=== PATIENT | male | born 1945 | race Caucasian/White ===

== ENCOUNTER 2020-04-03 08:53 | Day surgery (SDC) | payer MEDICARE, OTHER, SELFPAY ==
[~2020-04-03] VITALS: Ht 180.3 cm; Wt 80.0 kg
[~2020-04-03 08:53] MED LIST: AMLO10 PO; AMLO5 PO; ASPI325 PO; ASPI81CH PO; CHLO25 PO; CLOP75 PO; HYDR1TAB94 PO; METO25ER PO; METO50ER PO; Norco 5-325 Ta1 EACH PO; PANT20 PO; SULFA DRUG; THERAPEUTIC-M1 EAC3 PO; Ventolin5 MG/1 ML INH; WARFARIN
== END 2020-04-03 11:40 | disposition home or self-care (01) ==
LOC: ORSCSDS 08:53
PROVIDERS: Student in an Organized Health Care Education/Training Program
PROC: 0DBH8ZX Excision of Cecum, Via Natural or Artificial Opening Endoscopic, Diagnostic (ICD-10-PCS; principal; 2020-04-03 10:00)
PROC: 0DBN8ZX Excision of Sigmoid Colon, Via Natural or Artificial Opening Endoscopic, Diagnostic (ICD-10-PCS; principal; 2020-04-03 10:00)
PROC: 0DBK8ZX Excision of Ascending Colon, Via Natural or Artificial Opening Endoscopic, Diagnostic (ICD-10-PCS; principal; 2020-04-03 10:00)
DX: K92.1 Melena (principal); D12.0 Benign neoplasm of cecum; D12.2 Benign neoplasm of ascending colon; D12.5 Benign neoplasm of sigmoid colon; K57.30 Diverticulosis of large intestine without perforation or abscess without bleeding; I10 Essential (primary) hypertension; Z87.891 Personal history of nicotine dependence; J44.9 Chronic obstructive pulmonary disease, unspecified; G20 Parkinson's disease; I25.10 Atherosclerotic heart disease of native coronary artery without angina pectoris; Z79.899 Other long term (current) drug therapy; Z79.82 Long term (current) use of aspirin
CPT/HCPCS: 88305; J2704; J7120

== ENCOUNTER 2021-01-29 08:43 | Day surgery (SDC) | payer MEDICARE, OTHER ==
[~2021-01-29] VITALS: Ht 182.9 cm; Wt 78.6 kg
--- NOTE | 2021-01-29 10:14 | NUR ---
01/29/21 [email or web address] Sera Herbert PT UPDATED ON DELAY IN START TIME DUE TO PREVIOUS CASE RUNNING LONGER THAN ANTICIPATED. BED IN LOW, LOCKED POSITION, CALL LIGHT IN REACH.
== END 2021-01-29 11:52 | disposition home or self-care (01) ==
LOC: ORSCSDS 08:43
PROVIDERS: Student in an Organized Health Care Education/Training Program
PROC: 0DBK8ZX Excision of Ascending Colon, Via Natural or Artificial Opening Endoscopic, Diagnostic (ICD-10-PCS; principal; 2021-01-29 10:00)
PROC: 0DBL8ZX Excision of Transverse Colon, Via Natural or Artificial Opening Endoscopic, Diagnostic (ICD-10-PCS; principal; 2021-01-29 10:00)
PROC: 0DBM8ZX Excision of Descending Colon, Via Natural or Artificial Opening Endoscopic, Diagnostic (ICD-10-PCS; principal; 2021-01-29 10:00)
PROC: 0DBN8ZX Excision of Sigmoid Colon, Via Natural or Artificial Opening Endoscopic, Diagnostic (ICD-10-PCS; principal; 2021-01-29 10:00)
DX: Z12.11 Encounter for screening for malignant neoplasm of colon (principal); Z86.010 Personal history of colon polyps; D12.3 Benign neoplasm of transverse colon; D12.2 Benign neoplasm of ascending colon; K63.5 Polyp of colon; K57.30 Diverticulosis of large intestine without perforation or abscess without bleeding; I10 Essential (primary) hypertension; I25.10 Atherosclerotic heart disease of native coronary artery without angina pectoris; J44.9 Chronic obstructive pulmonary disease, unspecified; Z79.899 Other long term (current) drug therapy
CPT/HCPCS: 88305; J2704; J7120

== ENCOUNTER 2022-05-16 17:35 | Emergency (ER) | payer MEDICARE, OTHER ==
[~2022-05-16] VITALS: Ht 182.9 cm; Wt 81.7 kg
[2022-05-16] MEDS ORDERED: METO25ER (21:31)
[2022-05-16 22:08] LABS: BASOPHILS ABSOLUTE AUTO 0.06 K/mm3 (0.00-0.23); BASOPHILS PERCENT AUTO 1 % (0-2); EOSINOPHILS ABSOLUTE AUTO 0.04 K/mm3 (0.00-0.68); EOSINOPHILS PERCENT AUTO 1 % (0-6); Hematocrit 40.9 % (37.0-53.0); Hemoglobin 14.2 g/dL (13.5-17.5); IMMATURE GRAN ABSOLUTE AUTO 0.03 K/mm3 (0.00-0.10); IMMATURE GRAN PERCENT AUTO 0 % (0-1); LYMPHOCYTES ABSOLUTE AUTO 2.07 K/mm3 (0.84-5.20); LYMPHOCYTES PERCENT AUTO 27 % (21-46); MONOCYTES ABSOLUTE AUTO 0.85 K/mm3 (0.16-1.47); MONOCYTES PERCENT AUTO 11 % (4-13); Mean Corpuscular HGB 31.2 pg (26.0-34.0); Mean Corpuscular HGB Conc 34.7 g/dL (31.5-36.5); Mean Corpuscular Volume 90 fL (80-100); Mean Platelet Volume 9.9 fL (9.1-12.4); NEUTROPHILS ABSOLUTE AUTO 4.67 K/mm3 (1.96-9.15); NEUTROPHILS PERCENT AUTO 61 % (41-73); Platelet Count 213 K/mm3 (150-400); RDW Coefficient Variation 12.8 % (11.7-14.2); RDW Standard Deviation 42.5 fL (35.1-46.3); Red Blood Cell Count 4.55 M/mm3 (4.30-5.90); White Blood Cell Count 7.72 K/mm3 (4.00-11.30)
[2022-05-16 22:27] LABS: Bilirubin, Total 0.6 mg/dL (0.1-1.0); Bun/Creatinine Ratio 11.5 (12.0-20.0); Calcium, Blood 9.4 mg/dL (8.5-10.1); Creatinine, Blood 0.61 mg/dL (0.60-1.20); Globulin, Blood 4.2 g/dL (2.2-4.0); Potassium, Blood 4.2 mmol/L (3.5-5.5); Total Protein, Blood 8.2 g/dL (6.4-8.2)
[2022-05-16 22:52] LABS: Influenza A, PCR NEGATIVE (NEGATIVE); Influenza B, PCR NEGATIVE (NEGATIVE); Resp Syncytial Virus, PCR NEGATIVE (NEGATIVE); SARS-Cov-2 (COVID-19) PCR, MMC NEGATIVE (NEGATIVE)
== END 2022-05-16 23:10 | disposition short-term general hospital (02) ==
LOC: ER 17:35
PROVIDERS: Student in an Organized Health Care Education/Training Program
DX: S62.633B Displaced fracture of distal phalanx of left middle finger, initial encounter for open fracture (principal); W23.0XXA Caught, crushed, jammed, or pinched between moving objects, initial encounter; I10 Essential (primary) hypertension; Z88.6 Allergy status to analgesic agent; Z88.1 Allergy status to other antibiotic agents; Z79.899 Other long term (current) drug therapy; Z79.82 Long term (current) use of aspirin; Z87.891 Personal history of nicotine dependence
CPT/HCPCS: 0241U; 36415; 73140; 80053; 85025; 86850; 86900; 86901; J0690; J1885; J2270

== ENCOUNTER 2022-09-04 09:05 | Observation (INO) | payer MEDICARE, OTHER ==
[~2022-09-04] VITALS: Ht 182.9 cm; Wt 73.3 kg
[2022-09-04 09:55] LABS: Source, Urine Clean Catch
[2022-09-04 09:58] LABS: BASOPHILS ABSOLUTE AUTO 0.03 K/mm3 (0.00-0.23); BASOPHILS PERCENT AUTO 0 % (0-2); EOSINOPHILS ABSOLUTE AUTO 0.01 K/mm3 (0.00-0.68); EOSINOPHILS PERCENT AUTO 0 % (0-6); Hematocrit 39.2 % (37.0-53.0); IMMATURE GRAN ABSOLUTE AUTO 0.05 K/mm3 (0.00-0.10); IMMATURE GRAN PERCENT AUTO 1 % (0-1); LYMPHOCYTES ABSOLUTE AUTO 0.87 K/mm3 (0.84-5.20); LYMPHOCYTES PERCENT AUTO 13 % (21-46); MONOCYTES ABSOLUTE AUTO 0.81 K/mm3 (0.16-1.47); MONOCYTES PERCENT AUTO 12 % (4-13); Mean Corpuscular HGB 30.8 pg (26.0-34.0); Mean Corpuscular HGB Conc 35.7 g/dL (31.5-36.5); Mean Corpuscular Volume 86 fL (80-100); Mean Platelet Volume 9.6 fL (9.1-12.4); NEUTROPHILS PERCENT AUTO 74 % (41-73); Platelet Count 202 K/mm3 (150-400); RDW Coefficient Variation 12.8 % (11.7-14.2); RDW Standard Deviation 40.3 fL (35.1-46.3); Red Blood Cell Count 4.54 M/mm3 (4.30-5.90); White Blood Cell Count 6.77 K/mm3 (4.00-11.30)
[2022-09-04 10:00] LABS: Appearance, Urine Clear (Clear); Bilirubin, Urine Neg (Neg); Blood, Urine 1+ (Neg); Color, Urine Yellow (P-Yellow); Glucose Qualitative, Urine Neg (Neg); Ketones, Urine Neg (Neg); Leukocyte Esterase, Urine Neg (Neg); Nitrite, Urine Neg (Neg); Protein, Urine Neg (Neg); Specific Gravity, Urine 1.015 (1.003-1.022); Urobilinogen, Urine NORM (Normal)
[2022-09-04 10:20] LABS: Calcium, Ionized (POC) 1.08 mmol/L (1.10-1.46); Chloride (POC) 87 mmol/L (98-108); Creatinine (POC) 0.5 mg/dL (0.8-1.3); Glucose (ISTAT POC) 106 mg/dL (70-99); Hemoglobin (POC) 15.3 g/dL (13.5-17.5); Potassium (POC) 4.6 mmol/L (3.5-5.5); Sodium (POC) 121 mmol/L (135-148); Total CO2 (POC) 25 mmol/L (21-32)
[2022-09-04 10:24] LABS: Bacteria Not Seen /hpf; Red Blood Cells, Urine 0-2 /hpf (0-2); Squamous Epithelial Cells Rare /hpf (Few); White Blood Cells, Urine Not Seen /hpf (0-5)
[2022-09-04 12:08] LABS: Albumin, Blood 3.9 g/dL (3.4-5.0); Albumin/Globulin Ratio 1.1 (0.8-1.8); Bilirubin, Total 0.6 mg/dL (0.1-1.0); Bun/Creatinine Ratio 10.1 (12.0-20.0); Creatinine, Blood 0.69 mg/dL (0.60-1.20); Globulin, Blood 3.7 g/dL (2.2-4.0); Magnesium, Blood 1.7 mg/dL (1.6-2.4); Total Protein, Blood 7.6 g/dL (6.4-8.2)
[2022-09-04 12:22] LABS: Calcium, Blood 9.1 mg/dL (8.5-10.1)
[2022-09-04 14:58] LABS: Source, Urine Clean Catch
[2022-09-04 15:23] LABS: Appearance, Urine Clear (Clear); Bilirubin, Urine Neg (Neg); Blood, Urine 2+ (Neg); Glucose Qualitative, Urine Neg (Neg); Ketones, Urine 2+ (Neg); Leukocyte Esterase, Urine Neg (Neg); Nitrite, Urine Neg (Neg); Protein, Urine Neg (Neg); Urobilinogen, Urine NORM (Normal)
[2022-09-04 15:35] LABS: Color, Urine Pale Yellow (P-Yellow)
[2022-09-04 15:37] LABS: White Blood Cells, Urine 0-2 /hpf (0-5)
[2022-09-04 15:41] LABS: Bacteria Rare /hpf; Squamous Epithelial Cells Not Seen /hpf (Few)
--- NOTE | 2022-09-04 18:48 | NUR ---
ADMIT SUMMARY PATIENT IS ALERT AND ORIENTED. PATIENT ADMISSION COMPLETE EXCEPT FOR ASSESSMENT. PATIENT ARRIVED TO FLOOR AT 1835. WILL RELAY INFORMATION TO ONCOMING RN.
[2022-09-05 05:56] LABS: BASOPHILS ABSOLUTE AUTO 0.04 K/mm3 (0.00-0.23); BASOPHILS PERCENT AUTO 1 % (0-2); EOSINOPHILS ABSOLUTE AUTO 0.02 K/mm3 (0.00-0.68); EOSINOPHILS PERCENT AUTO 0 % (0-6); Hematocrit 37.1 % (37.0-53.0); Hemoglobin 13.3 g/dL (13.5-17.5); IMMATURE GRAN ABSOLUTE AUTO 0.02 K/mm3 (0.00-0.10); IMMATURE GRAN PERCENT AUTO 0 % (0-1); LYMPHOCYTES ABSOLUTE AUTO 1.31 K/mm3 (0.84-5.20); LYMPHOCYTES PERCENT AUTO 24 % (21-46); MONOCYTES ABSOLUTE AUTO 0.69 K/mm3 (0.16-1.47); MONOCYTES PERCENT AUTO 13 % (4-13); Mean Corpuscular HGB 31.1 pg (26.0-34.0); Mean Corpuscular HGB Conc 35.8 g/dL (31.5-36.5); Mean Corpuscular Volume 87 fL (80-100); Mean Platelet Volume 9.9 fL (9.1-12.4); NEUTROPHILS ABSOLUTE AUTO 3.37 K/mm3 (1.96-9.15); NEUTROPHILS PERCENT AUTO 62 % (41-73); Platelet Count 199 K/mm3 (150-400); RDW Coefficient Variation 13.1 % (11.7-14.2); RDW Standard Deviation 41.2 fL (35.1-46.3); Red Blood Cell Count 4.27 M/mm3 (4.30-5.90); White Blood Cell Count 5.45 K/mm3 (4.00-11.30)
[2022-09-05 06:29] LABS: Albumin, Blood 3.4 g/dL (3.4-5.0); Bilirubin, Total 0.6 mg/dL (0.1-1.0); Bun/Creatinine Ratio 9.9 (12.0-20.0); Calcium, Blood 8.8 mg/dL (8.5-10.1); Creatinine, Blood 0.61 mg/dL (0.60-1.20); Globulin, Blood 3.3 g/dL (2.2-4.0); Magnesium, Blood 2.1 mg/dL (1.6-2.4); Potassium, Blood 3.8 mmol/L (3.5-5.5); Total Protein, Blood 6.7 g/dL (6.4-8.2)
--- NOTE | 2022-09-05 06:46 | NUR ---
FUR TRIMMER SUMMARY: A&Ox4. PLEASANT AND COOPERATIVE WITH CARE. CALLS APPROPRIATELY AND IS ABLE TO COMMUNICATE NEEDS EFFECTIVELY. DAUGHTER, KYLAH, STAYED WITH PT LAST NIGHT TO ASSIST WITH HIS NEEDS. USING BEDSIDE COMMODE, URINAL AND AMBULATES TO BATHROOM. C / O IV LEFT AC HURTING; REMOVED AND REPLACED IN FA. NS @ 100mL/hr. IV LABETOLOL ADMINISTERED x1 FOR SBP >140. TELE IN PLACE; SINUS BLANCHE w/ BBB. LABS DRAWN THIS AM. NO CRITICAL RESULTS RECEIVED AT THIS TIME. WILL REPORT TO ONCOMING RN.
[2022-09-05] MEDS ORDERED: Acetaminophen325 M1 PO (11:44)
[2022-09-05] MEDS ORDERED: ATOR20 PO (11:44)
[2022-09-05] MEDS ORDERED: HYDR10 PO (11:45)
--- NOTE | 2022-09-05 13:56 | NUR ---
DISCHARGED INFORMED PT WE WERE WAITING FOR A LAB RESULT TO COME BACK BUT PT SAID THAT HE WAS READY TO LEAVE. DISCUSSED WITH , PLANNED FOR A 1330 DISCHARGE IF RESULTS HAVE NOT CAME BACK YET. PT DISCHARGED TO HOME. FAMILY WITH PT. PT IS ALERT AND ORIENTED X4, R/A, INDEPENDANT IN THE ROOM. PT AND FAMILY EDUCATED ON PT DISCHARGE INSTRUCTIONS.
== END 2022-09-05 13:51 | disposition home or self-care (01) ==
LOC: ER 09:05 → MEDS 16:33
PROVIDERS: Emergency Medicine; ADMIT Student in an Organized Health Care Education/Training Program
DX: I61.0 Nontraumatic intracerebral hemorrhage in hemisphere, subcortical (principal); R41.0 Disorientation, unspecified; E87.1 Hypo-osmolality and hyponatremia; I10 Essential (primary) hypertension; Z87.891 Personal history of nicotine dependence; Z88.6 Allergy status to analgesic agent; Z88.1 Allergy status to other antibiotic agents; Z79.899 Other long term (current) drug therapy
CPT/HCPCS: 36415; 70450; 71046; 74177; 80047; 80053; 81001; 82947; 83605; 83735; 83930; 83935; 84295; 84300; 85014; 85025; 92610; 93005; 93010; 94760; 94762; 96361; 96374; 96376; 97162; 97166; 97530; 97535; 99285-25; A9270; G0378; J7030; Q9967

== ENCOUNTER 2025-03-30 12:06 | Day surgery (SDC) | payer MEDICARE, OTHER ==
[~2025-03-30] VITALS: Ht 180.3 cm; Wt 74.7 kg
[~2025-03-30 12:06] MED LIST changes: +ATOR20 PO; +Acetaminophen325 M1 PO; +Acetaminophen650 M1 PO; +Balanced Salt Epinephrine Irrigation Solution 500 mL IR SCH; +HYDR10 PO; +Moxifloxacin HCL 0.5 MG/0.1 ML 0.4MLSYR RIGHTEYE SCH; +OXYC10TA19 PO; +Ondansetron 4 MG SoluTab MM PRN; +PHENYLEPHRINE\\TROPICAMIDE\\TETRACAINE OPHTHALMIC DILATING SOLN RIGHTEYE PRN; +Povidone-Iodine 450 DROP/30 ML Solution ONE; +Povidone-Iodine 450 DROP/30 ML Solution RIGHTEYE SCH; +Tetracaine HCl/Pf 0.5% Opth Soln 4 ml ONE; +Triamcinolone Inj Susp 40 MG / ML 1ML Vial INJ SCH; +Triamcinolone Inj Susp 40 MG / ML 1ML Vial ONE
--- NOTE | 2025-03-30 13:55 | NUR ---
03/30/25 1355 Jael Tellez 1345: PT ASSISTED TO RESTROOM
[2025-03-30] MEDS ORDERED: FentaNYL Citrate 50 MCG/ML 2 ML Injection ONE (13:58)
[2025-03-30] MEDS ORDERED: Midazolam HCl 1MG / ML 2ML Vial ONE (13:58)
[2025-03-30 14:29] VITALS: BP 141/69
--- NOTE | 2025-03-30 14:29 | NUR ---
03/30/25 1420 Daisy Duran AT BEDSIDE, RIGHT HEARING AID RETURNED TO PATIENT AND PATIENT PLACED IN RIGHT EAR. LEFT HEARING AID NOTED UPON ARRIVAL TO STEP DOWN
== END 2025-03-30 14:44 | disposition home or self-care (01) ==
LOC: ORSCSDS 12:06
PROVIDERS: Ophthalmology
PROC: 08RJ3JZ Replacement of Right Lens with Synthetic Substitute, Percutaneous Approach (ICD-10-PCS; principal; 2025-03-30 14:00)
DX: H25.811 Combined forms of age-related cataract, right eye (principal); H21.81 Floppy iris syndrome; I10 Essential (primary) hypertension; I48.0 Paroxysmal atrial fibrillation; I25.10 Atherosclerotic heart disease of native coronary artery without angina pectoris; Z79.899 Other long term (current) drug therapy
CPT/HCPCS: J2250; J3010; J3301; V2632